=== PATIENT | male | born 1960 | race African-American/Black ===

== ENCOUNTER 2018-05-26 17:22 | Emergency (ER) | payer OTHER ==
[~2018-05-26] VITALS: Ht 172.7 cm; Wt 72.6 kg
[~2018-05-26 17:22] MED LIST: ATIVAN2 M1; MOTRIN800 MG PO; NORVASC2.5 M1; SINGULAIR4 MG; VASOTEC20 M1; WELLBUTRIN SR150 MG; ZOLOFT100 MG
== END 2018-05-26 19:36 | disposition home or self-care (01) ==
LOC: ER 17:22
DX: S51.852A Open bite of left forearm, initial encounter (principal); W54.0XXA Bitten by dog, initial encounter; Y93.89 Activity, other specified; Y92.89 Other specified places as the place of occurrence of the external cause; Y99.8 Other external cause status

== ENCOUNTER 2018-06-02 10:14 | Emergency (ER) | payer OTHER ==
[~2018-06-02] VITALS: Ht 172.7 cm; Wt 86.2 kg
== END 2018-06-02 11:58 | disposition home or self-care (01) ==
LOC: ER 10:14
DX: Z48.02 Encounter for removal of sutures (principal)

== ENCOUNTER 2021-04-27 15:54 | Emergency (ER) | payer OTHER ==
[~2021-04-27] VITALS: Ht 170.2 cm; Wt 93.0 kg
[2021-04-27] MEDS ORDERED: SYMBICORT 16010.2 GM (17:04)
[2021-04-27] MEDS ORDERED: ZESTRIL20 MG (17:04)
[2021-04-27] MEDS ORDERED: SINGULAIR10 MG (17:04)
[2021-04-27] MEDS ORDERED: NORVASC5 MG (17:04)
[2021-04-27] MEDS ORDERED: PROAIR HFA8.5 GM (17:05)
[2021-04-27] MEDS ORDERED: NABUMETONE750 MG PO (21:19)
[2021-04-27] MEDS ORDERED: DOXYCYCLINE HY100 MG PO (21:19)
== END 2021-04-27 21:34 | disposition home or self-care (01) ==
LOC: ER 15:54
DX: N45.1 Epididymitis (principal); Z20.822 Contact with and (suspected) exposure to COVID-19